=== PATIENT | male | born 1960 | race Caucasian/White ===

== ENCOUNTER → 2021-07-04 | Day surgery (SDC) | payer BC ==
[~2021-07-04] MED LIST: Ketamine 200 MG/20 ML MDV ONE; Lactated Ringers 1,000 ML IV SCH; Propofol 200 MG/20 ML SDV ONE; fentaNYL 100 MCG/2 ML SDV ONE
--- NOTE | 2021-07-04 14:37 | OR ---
DATE OF OPERATION: 07/04/2021 PREOPERATIVE DIAGNOSIS: 1. HEMATOCHEZIA. 2. HISTORY OF POLYPS. POSTOPERATIVE DIAGNOSIS: 1. HEMATOCHEZIA. 2. HISTORY OF POLYPS. SURGEON: Cordell Day MD PROCEDURE: DIAGNOSTIC COLONOSCOPY WITH FORCEPS POLYP REMOVAL X2. ANESTHESIA: MAC. COMPLICATIONS: None. SPECIMEN: Two flat sessile polyps, see report. FINDINGS: 1. Full-length diagnostic colonoscopy. 2. [id number] sigmoid diverticulosis. 3. Sessile polyps x2, each approximately 4-5 mm. RECOMMENDATIONS: Followup colonoscopy in 5 years pending pathology reports. INDICATIONS: Mr. Garcia has been having some ongoing issues with some left lower quadrant pain and occasional hematochezia. We elected to proceed with diagnostic endoscopy due to history of polyps and his hematochezia. DESCRIPTION OF PROCEDURE: The patient was prepped and draped, placed in the left lateral decubitus position. A lubricated Olympus colonoscope was inserted and with ease, advanced to the cecum. Direct visualization of the ileocecal valve and appendiceal orifice was accomplished. The bowel prep was adequate. Upon withdrawal of the scope, cecum and ascending colon were completely benign. In the proximal transverse colon just past the hepatic flexure, patient had a little bit larger flat sessile polyp, could not get a snare around, it was right along the backside of the haustral fold and the snare kept slipping off. We removed it with about five cold forceps biopsies without any complication. The rest of the transverse and descending colons appeared unremarkable. In the distal sigmoid colon around 35 cm, the patient had a second sessile polyp approximately 3-4 mm, removed with a forceps biopsy x2 in its entirety. The patient does have scattered diverticulosis throughout the sigmoid colon, mild to moderate in severity without any inflammatory changes. The rectal vault appeared benign. Retroflexion showed no perianal lesions. Air was then suctioned. Scope removed without complication. JAMAL/INDIRA /[id number]
== END ==
LOC: CC.SDS 11:07
PROVIDERS: ATTEND Family Medicine
DX: D12.5 Benign neoplasm of sigmoid colon (principal); D12.3 Benign neoplasm of transverse colon; K57.30 Diverticulosis of large intestine without perforation or abscess without bleeding; N40.0 Benign prostatic hyperplasia without lower urinary tract symptoms; K21.9 Gastro-esophageal reflux disease without esophagitis; I10 Essential (primary) hypertension; E78.00 Pure hypercholesterolemia, unspecified; M54.10 Radiculopathy, site unspecified; N64.4 Mastodynia; Z88.0 Allergy status to penicillin; Z79.899 Other long term (current) drug therapy; Z98.890 Other specified postprocedural states; Z87.891 Personal history of nicotine dependence
CPT/HCPCS: 45385; J2704; J3010; 00811

== ENCOUNTER 2024-06-08 09:09 | Day surgery (SDC) | payer MEDICARE, OTHER ==
[2024-06-08] MEDS: Lactated Ringers 1,000 ML IV SCH (09:51)
[2024-06-08] MEDS ORDERED: Lidocaine 0.5% 50 ML SDV ONE (10:05)
[2024-06-08] MEDS ORDERED: Midazolam 1 MG/ML 2 ML SDV ONE (10:05)
[2024-06-08] MEDS ORDERED: fentaNYL 50 MCG/ML SDV ONE (10:05)
[2024-06-08] MEDS ORDERED: Propofol 200 MG/20 ML SDV ONE (10:05)
[2024-06-08] MEDS ORDERED: Ketamine 200 MG/20 ML MDV ONE (10:05)
[2024-06-08] MEDS ORDERED: Ketorolac 30 MG/ML SDV ONE (10:05)
[2024-06-08] MEDS: Lidocaine 1% 5 ML VIAL INJECT ONE (10:40)
== END 2024-06-08 12:20 | disposition home or self-care (01) ==
LOC: CC.SDS 09:09
PROVIDERS: ATTEND Surgery
DX: G56.03 Carpal tunnel syndrome, bilateral upper limbs (principal); I10 Essential (primary) hypertension; E78.00 Pure hypercholesterolemia, unspecified; K21.9 Gastro-esophageal reflux disease without esophagitis; N40.0 Benign prostatic hyperplasia without lower urinary tract symptoms; H60.509 Unspecified acute noninfective otitis externa, unspecified ear; Z87.891 Personal history of nicotine dependence; Z79.899 Other long term (current) drug therapy; Z88.0 Allergy status to penicillin
CPT/HCPCS: 01810; J1885; J2250; J2704; J3010; J3490; J7120